=== PATIENT | female | born 1985 | race American Indian/Alaskan Native ===

== ENCOUNTER 2021-05-10 07:24 | Day surgery (SDC) | payer MEDICAID ==
--- NOTE | 2021-05-10 06:51 | History and Physical Report ---
History of Present Illness Date of examination: 05/08/21 Chief complaint: Surgical Management of Condyloma History of present illness: Pt is a 35 year old -[place] female who presents for excision of condyloma acuminata after failed management with multiple visits for tricholoro acetic acid application and anxiety regarding the procedure. Past History Past Medical History: hypertension, GERD, hematologic disorders (Anemia ) Past Surgical History: no surgical history [employer] History: herpes Family/Genetic History: cancer, other (asthma ) Social history: smoking (tobacco use ) - Obstetrical History : 3 Para: 3 Hx # Term Pregnancies: 3 Number of Pregnancies: 0 Spontaneous Abortions: 0 Induced : 0 Number of Living Children: 3 Medications and Allergies Allergies Allergy/AdvReac Type Severity Reaction Status Date / Time erythromycin base Allergy Unknown Verified 10/29/14 10:30 [Erythromycin Base] Home Medications Medication Instructions Recorded Confirmed Last Taken Type amLODIPine [Norvasc] 10 mg PO DAILY 05/01/21 05/01/21 Unknown History Review of Systems All systems: negative - Physical Exam Breasts: Positive: deferred Cardiovascular: Regular rate Lungs: Positive: Clear to auscultation Abdomen: Positive: soft (obese) Vulva: both: condyloma Extremities: Positive: normal Results All other labs normal. Assessment and Plan A: Condyloma Acuminata Anxiety Hypertension Obesity Tobacco Use P: Proceed with exam under anesthesia, excision of condyloma and other indicated procedures
[2021-05-10] MEDS ORDERED: LACTATED RINGERS 1,000 ML IV SCH (08:00)
[2021-05-10] MEDS ORDERED: ceFAZolin/Water 2 GM/20 ML 2 GM/20 ML SYRINGE IV NR (09:00)
[2021-05-10 09:19] LABS: Hematocrit 39.2 % (30.3-42.9); Hemoglobin 12.7 gm/dl (10.1-14.3); Mean Corpuscular HGB Conc 32 % (30-34); Mean Corpuscular Volume 93 fl (79-97); Platelet Count 194 K/mm3 (140-440); Red Blood Count 4.21 M/mm3 (3.65-5.03); Red Cell Distribution Width 12.7 % (13.2-15.2)
[2021-05-10] MEDS ORDERED: MIDAZOLAM 2 MG/2 ML INJ ONE (09:26)
--- NOTE | 2021-05-10 09:26 | Anesthesia Day of Surgery ---
Anesthesia Day of Surgery - Day of Surgery Patient Examined: Yes Patient H&P Reviewed: Yes Patient is NPO: Yes
--- NOTE | 2021-05-10 09:28 | Anesthesia Consultation ---
Anesthesia Consult and Med Hx Date of service: 05/10/21 - Airway Anesthetic Teeth Evaluation: Good ROM Head & Neck: Adequate Mental/Hyoid Distance: Adequate Mallampati Class: Class I Intubation Access Assessment: Good - Pre-Operative Health Status ASA Pre-Surgery Classification: ASA3 Proposed Anesthetic Plan: General - Pulmonary Hx Smoking: Yes (CIGARETTES APPROX. 4/DAY) Hx Asthma: No COPD: No Hx Pneumonia: No - Cardiovascular System Hx Hypertension: Yes Hx Heart Attack/AMI: No - Central Nervous System Hx Seizures: No Hx Back Pain: Yes Hx Psychiatric Problems: Yes (anxiety) - Gastrointestinal Hx Gastroesophageal Reflux Disease: Yes (Occasional) - Endocrine Hx Renal Disease: No Hx End Stage Renal Disease: No Hx Hypothyroidism: No Hx Hyperthyroidism: No - Hematic Hx Anemia: Yes Hx Sickle Cell Disease: No - Other Systems Hx Alcohol Use: No Hx Cancer: No Hx Obesity: Yes
[2021-05-10] MEDS ORDERED: ONDANSETRON 4 MG/2 ML INJ IV PRN (10:00)
[2021-05-10] MEDS ORDERED: MIDAZOLAM 2 MG/2 ML INJ IV NR (10:00)
[2021-05-10] MEDS ORDERED: HYDROmorphone 1 MG/1 ML INJ IV PRN (10:00)
[2021-05-10] MEDS ORDERED: LIDOCAINE MPF (2%) 20 MG/1 ML VIAL 5 ML ONE (10:15)
[2021-05-10] MEDS ORDERED: dexAMETHasone 20 MG/5 ML VIAL ONE (10:16)
[2021-05-10] MEDS ORDERED: fentaNYL 100 MCG/2 ML INJ ONE (10:16)
[2021-05-10] MEDS ORDERED: propofoL 200 MG/20 ML VIAL IV ONE (10:16)
[2021-05-10] MEDS ORDERED: ONDANSETRON 4 MG/2 ML INJ ONE (10:16)
[2021-05-10] MEDS ORDERED: BUPIVACAINE/PF (0.25%) 2.5 MG/ML 10 ML VIAL INFILTRATI ONE ×2 (11:22→11:26)
[2021-05-10] MEDS ORDERED: ePHEDrine SULFATE 50 MG/1 ML INJ ONE (11:26)
[2021-05-10] MEDS ORDERED: SODIUM CHLORIDE 0.9% IRR 1,500 ML BOTTLE IR ONE (11:27)
[2021-05-10] MEDS ORDERED: KETOROLAC 30 MG/1 ML INJ ONE (11:43)
--- NOTE | 2021-05-10 12:04 | Operative Report ---
Operative Report Operative Report: Date of procedure: May 10, 2021 Preoperative diagnosis: Condylomata Accuminatum Postoperative diagnosis: Same Procedure: Exam under Anesthesia, Excision of Condylomata Surgeon: Layne Rodriguez MD Anesthesia: General with LMA Findings: Three condylomata noted (left perineal, right perineal and perianal ) EBL:5 mL Urine output: 200 mL prior to the procedure Specimens: condylomata to pathology Drains: None Complications: None. Counts correct x 2 Disposition: stable to PACU Indication for procedure: Pt is a 35 year old who presents for surgical management of condylomata accuminatum after failure of resolution with trichloroacetic acid in the office. Operation in detail: After the risks, benefits, alternatives, and complications were explained to the patient, she gave informed consent for the procedure. She was subsequently taken to the operating room with her IV noted to be running well and placed in the dorsal supine position. SCDs were noted to be in place and functioning. General anesthesia was induced without difficulty. The patient was then placed in the dorsal lithotomy position and prepped and draped in a normal sterile fashion. A timeout was performed. The bladder was drained of clear urine prior to the start of the procedure. Three condylomata were identified, one on the left perineum at 5 oclock, one on the right perineum at 7 oclock and a larger perianal lesion. Each was infiltrated with a quarter percent marcaine solution, excised with a 15 blade, and sent to pathology. The three remaining defects were cauterized with needle point cautery, and the skin was reapproximated with a figure of eight of 5-0 Vicryl suture on a PS3 needle. Hemostasis was noted. All instruments were removed and the procedure was then ended. The patient was then replaced into the dorsal supine position and extubated without difficulty. She was then taken to the PACU in stable condition. All counts were correct x 2.
--- NOTE | 2021-05-10 12:15 | Short Stay Summary ---
Short Stay Documentation Date of service: 05/10/21 - History H&P: dictated Social history: smoking (tobacco use ) - Allergies and Medications Current Medications: Allergies erythromycin base [Erythromycin Base] Allergy (Verified 10/29/14 10:30) Unknown Home Medications Medication Instructions Recorded Confirmed Last Taken Type amLODIPine [Norvasc] 10 mg PO DAILY 05/01/21 05/01/21 Unknown History Active Medications Hydromorphone HCl (Hydromorphone 1 Mg/1 Ml Inj) 0.25 mg IV Q10MIN PRN PRN Reason: Pain, Moderate (4-6) Hydromorphone HCl (Hydromorphone 1 Mg/1 Ml Inj) 0.5 mg IV Q10MIN PRN PRN Reason: Pain , Severe (7-10) Lactated Ringer's (Lactated Ringers) 1,000 mls @ 75 mls/hr IV DIRECT YAMILE Cefazolin Sodium (Ancef/Sterile Water 2 Gm/20 Ml) 2 gm in 20 mls @ 80 mls/hr IV PREOP NR; Protocol Stop: 05/10/21 23:59 Midazolam HCl (Midazolam 2 Mg/2 Ml Inj) 2 mg IV PREOP NR Stop: 05/10/21 23:59 Ondansetron HCl (Ondansetron 4 Mg/2 Ml Inj) 4 mg IV ONCE PRN PRN Reason: Nausea And Vomiting - Physical exam Breasts: deferred - Brief post op/procedure progress note Date of procedure: 05/10/21 Pre-op diagnosis: Condylomata Accuminatum Post-op diagnosis: same Procedure: Exam under anesthesia, excision of condylomata Anesthesia: GETA Findings: Three condylomata noted; left perineal, right perineal and perinanal Surgeon: AB BARTH Estimated blood loss: minimal (5 mL) Pathology: list (condylomata) Specimen disposition: to lab Condition: stable - Hospital course Hospital course: This patient underwent exam under anesthesia and excision of condylomata acuminata which she tolerated well. She was observed in the PACU until she met discharge criteria. She will follow-up in the office in 1 week for incision check. - Disposition Condition at discharge: Stable Disposition: 01 HOME / SELF CARE / HOMELESS - Discharge Diagnoses (1) Condylomata acuminata in female Status: Acute (2) Obesity Status: Acute Qualifiers: Obesity type: unspecified obesity type Obesity classification: adult class 1 (BMI 30 - 34.9) Body mass index: BMI 34.0-34.9 (3) Hypertension Status: Acute Qualifiers: Hypertension type: unspecified Qualified Code(s): I10 - Essential (primary) hypertension (4) Tobacco use Status: Acute Short Stay Discharge Plan Activity: other (Nothing in vagina, no intercourse x 4 wks) Weight Bearing Status: Full Weight Bearing Diet: regular Wound: keep clean and dry Follow up with: PRIMARY MD MATT [Primary Care Provider] - 7 Days AB BARTH MD [Staff Physician] - 7 Days
[2021-05-10] MEDS: HYDROmorphone 1 MG/1 ML INJ IV PRN ×2 (12:16→12:27)
[2021-05-10 12:49] VITALS: BP 129/80
--- NOTE | 2021-05-10 17:26 | Post Anesthesia Evaluation ---
- Post Anesthesia Evaluation Patient Participated: Yes Airway Patent: Yes Stable Respiratory Function: Yes Nausea/Vomiting: No Temp > 96.8F: Yes Pain Manageable: Yes Adequeate Hydration: Yes Anesthesia Complications: No Block Receding Appropriately: Not Applicable Patient on Ventilator: No
== END 2021-05-10 13:45 | disposition home or self-care (01) ==
LOC: OR 07:24
PROVIDERS: ATTEND Obstetrics & Gynecology
DX: A63.0 Anogenital (venereal) warts (principal); D64.9 Anemia, unspecified; F17.210 Nicotine dependence, cigarettes, uncomplicated; I10 Essential (primary) hypertension; K21.9 Gastro-esophageal reflux disease without esophagitis; Z79.899 Other long term (current) drug therapy; Z88.8 Allergy status to other drugs, medicaments and biological substances; Z87.440 Personal history of urinary (tract) infections; Z98.890 Other specified postprocedural states
CPT/HCPCS: 11420; 36415; 81025; 85027; 88305; J0690; J1100; J1170; J1885; J2250; J2405; J2704; J3010; J3490; J7120